=== PATIENT | female | born 1975 | race Caucasian/White ===

== ENCOUNTER 2016-12-22 01:00 | Emergency (ER) | payer SELFPAY ==
[2016-12-22 01:13] VITALS: BP 157/92; BMI 22.3
--- NOTE | 2016-12-22 01:57 | DR.GENAD ---
HPI - Complaint/Symptoms Chief Complaint Doctors Comments: out of BP meds, seizure meds x 4 days. Has had 2 seizures this week. Not seeing PCP in [place] Chief Complaint:: OUT OF BP MEDCINE, DIZZINESS, FALLING OUT Self Treatment fo Chief Complaint: NO - Nurses notes reviewed Nurses Notes Review: Yes - Source History Provided: Patient - Mode of Arrival Mode of Arrival: Ambulatory - Timing Onset of Chief Complaint: 12/20/16 Came on: Gradually - Duration Duration: Intermittent How lon Duration: Days - Location Location: generalized - Severity Severity: Mild - Modifying Factors Worsens:: out of meds - Associated Signs and Symptoms Associated Signs and Symptoms: contusions from falls PMH - PMH Past Medical History: Yes Past Medical History: Asthma, COPD, CVA, Diabetes, CT Past Surgical History: Yes Surgical History: Appendectomy, Hysterectomy Past Surgical History Comment: SCREWS IN NECK - Family History History of Family Medical Conditions: Yes Family Medical History: Diabetes Mellitus, Cancer, Hypertension - Social History Does patient currently use any type of tobacco product: Yes Type of Tobacco Use: Cigarettes - infectious screening Have you traveled outside the country in the last 6 months?: No Isolation: Standard ROS - Review of Systems Constitutional: No Symptoms Reported Eyes: Eye Pain (periorbital contusion from fall) ENTM: No Symptoms Reported Respiratoy: No Symptoms Reported Cardiovascular: No Symptoms Reported Gastrointestinal/Abdominal: No Symptoms Reported Genitourinary: No Symptoms Reported Neurological: Seizure Musculoskeletal: No Symptoms Reported Integumentary: No Symptoms Reported Hematologic/Lymphatic: No Symptoms Reported Endocrine: No Symptoms Reported Psychiatric: Depression PE - Vital Signs Vitals: Temperature 98.4 F Pulse Rate 112 Respiratory Rate 22 Blood Pressure 157/92 O2 Sat by Pulse Oximetry 100 - General Limitations: No Limitations General Appearance: Alert, In No Apparent Distress - Head Head Exam: negative: Normal Inspection, Atraumatic (periorbital right eye contusion) - Eyes Eye exam: Normal Appearance, EOMI. negative: Scleral Icterus, Conjunctival Injection - ENT ENT Exam: Normal Exam External Ear Exam: Normal External Inspection Nose Exam: Normal Nose Exam - Neck Neck Exam: Normal Inspection, Full ROM, Trachea Midline - Chest Chest Inspection: Normal Inspection - Respiratory Respiratory Exam: Normal Lung Sounds Bilat. negative: Accessory Muscle Use, Respiratory Distress Respiratory Exam: Bilateral Clear to Auscultation - Cardiovascular Cardiovascular Exam: Tachycardia - Abdominal Exam Abdominal Exam: Normal Inspection, Normal Bowel Sounds, Soft. negative: Distention, Tenderness, Guarding - Extremities Extremities Exam: Full ROM, Tenderness (right leg contusion and abrasion). negative: Normal Inspection - Neurologic Neurological Exam: Alert, Oriented X3, CN II-XII Intact - Psychiatric Psychiatric Exam: Depressed - Skin Skin Exam: Intact, Normal Color ROR - Labs Reviewed Result Diagrams: 12/22/16 02:03 12/22/16 02:03 Laboratory: WBC 10.3 X10^3/uL (3.6-10.0) H 12/22/16 02:03 RBC 4.84 X10^6/uL (3.5-5.4) 12/22/16 02:03 Hgb 13.4 g/dL (12.0-16.0) 12/22/16 02:03 Hct 40.0 % (36.0-47.0) 12/22/16 02:03 MCV 82.8 fL (80.0-100.0) 12/22/16 02:03 MCH 27.8 pg (27.0-34.0) 12/22/16 02:03 MCHC 33.5 g/dL (33.0-35.0) 12/22/16 02:03 RDW 15.4 % (11.6-16.5) 12/22/16 02:03 Plt Count 359 X10^3/uL (150.0-450.0) 12/22/16 02:03 MPV 9.0 fL (7.4-11.0) 12/22/16 02:03 Neut % 64.2 % (42.0-75.0) 12/22/16 02:03 Lymph % 23.7 % (21.0-51.0) 12/22/16 02:03 [place] % 8.2 % (0.0-13.0) 12/22/16 02:03 Eos % 3.3 % (0.9-2.9) H 12/22/16 02:03 Baso % 0.6 % (0.2-1.0) 12/22/16 02:03 Neut # 6.6 x10^3/uL (2.2-4.8) H 12/22/16 02:03 Lymph # 2.4 X10^3/uL (1.3-2.9) 12/22/16 02:03 [place] # 0.8 x10^3/uL (0.3-0.8) 12/22/16 02:03 Eos # 0.3 x10^3/uL (0.0-0.2) H 12/22/16 02:03 Baso # 0.1 X10^3/uL (0.0-0.1) 12/22/16 02:03 Absolute Nucleated RBC 0.0 /100WBC 12/22/16 02:03 Sodium 139 mmol/L (136-145) 12/22/16 02:03 Corrected Sodium TNP 12/22/16 02:03 Potassium 3.3 mmol/L (3.5-5.1) L 12/22/16 02:03 Chloride 100 mmol/L (98-107) 12/22/16 02:03 Carbon Dioxide 28.9 mmol/L (21-32) 12/22/16 02:03 BUN 26 mg/dL (7-18) H 12/22/16 02:03 Creatinine 1.46 mg/dL (0.55-1.02) H 12/22/16 02:03 Est GFR (MDRD) Af Amer 51 (>60) L 12/22/16 02:03 Est GFR (MDRD) Non-Af 42 (>60) L 12/22/16 02:03 Glucose 82 mg/dL (65-99) 12/22/16 02:03 Calcium 9.5 mg/dL (8.5-10.1) 12/22/16 02:03 Corrected Calcium TNP 12/22/16 02:03 Total Bilirubin 0.20 mg/dL (0.2-1.0) 12/22/16 02:03 AST 81 Units/L (15-37) H 12/22/16 02:03 ALT 70 Units/L (12-78) 12/22/16 02:03 Alkaline Phosphatase 137 Units/L (46-116) H 12/22/16 02:03 Creatine Kinase 181 Units/L (26-192) 12/22/16 02:03 CK-MB (CK-2) 17.1 ng/mL (0-4.0) H* 12/22/16 02:03 CK/CKMB % Calc 9.5 % (<4) 12/22/16 02:03 Troponin I 0.17 ng/mL (0-1.5) 12/22/16 02:03 Total Protein 8.9 g/dL (6.4-8.2) H 12/22/16 02:03 Albumin 3.5 g/dL (3.4-5.0) 12/22/16 02:03 Globulin 5.4 g/dL (2.5-4.5) H 12/22/16 02:03 Albumin/Globulin Ratio 0.6 Ratio (1.1-2.1) L 12/22/16 02:03 Specimen Type Clean catch urine 12/22/16 01:49 Urine Color Yellow (YELLOW) 12/22/16 01:49 Urine Appearance Cloudy (CLEAR) 12/22/16 01:49 Urine pH 5.0 (5.0 - 8.0) 12/22/16 01:49 Ur Specific [place] 1.015 (1.000-1.030) 12/22/16 01:49 Urine Protein 3+ (NEGATIVE) 12/22/16 01:49 Urine Glucose (UA) 1+ (NEGATIVE) 12/22/16 01:49 Urine Ketones 1+ (NEGATIVE) 12/22/16 01:49 Urine Occult Blood 2+ (NEGATIVE) 12/22/16 01:49 Urine Nitrite Negative (NEGATIVE) 12/22/16 01:49 Urine Bilirubin Negative (NEGATIVE) 12/22/16 01:49 Urine Urobilinogen Normal (NORMAL) 12/22/16 01:49 Ur Leukocyte Esterase 1+ (NEGATIVE) 12/22/16 01:49 Urine RBC 2-6 /HPF (NEGATIVE) 12/22/16 01:49 Urine WBC 10-15 /HPF (NEGATIVE) 12/22/16 01:49 Ur Squamous Epith Cells Few /HPF (NEGATIVE) 12/22/16 01:49 Urine Bacteria 3+ /HPF (NEGATIVE) 12/22/16 01:49 Ur Culture Indicated? No/not ordered 12/22/16 01:49 Urine Opiates Screen Negative (NEG=<300) 12/22/16 01:49 Urine Methadone Screen Negative (NEG=<300) 12/22/16 01:49 Ur Barbiturates Screen Negative (NEG=<200) 12/22/16 01:49 Phenytoin < 0.5 ug/mL (10-20) L 12/22/16 02:03 Ur Phencyclidine Scrn Negative (NEG=<25) 12/22/16 01:49 Ur Amphetamines Screen Positive (NEG=<1000) A 12/22/16 01:49 U Benzodiazepines Scrn Positive (NEG=<200) A 12/22/16 01:49 Urine Cocaine Screen Negative (NEG=<300) 12/22/16 01:49 U Marijuana (THC) Screen Negative (NEG=<50) 12/22/16 01:49 - XRAY XRAY Interpreted by: Self XRAY Findings: chest : normal cspine:no fx - EKG Rate: 85 [place]: Normal Rhythm: NSR Block: None Hypertrophy: LAE, LVH ST: Nonsp - Diagnosis Discharge Problem: Seizure - Discharge Plan Condition: Stable Prescriptions: Clonidine HCl [CATAPRES 0.1 MG TAB *] 0.1 mg PO BID #30 tab Nitrofurantoin Monohyd Macro [Macrobid] 100 mg PO BID #14 cap Phenytoin Sodium Ext Rel [Dilantin Cap 100 mg Ext Rel] 100 mg PO Q8H PRN #90 cap PRN Reason: - Follow ups/Referrals Follow ups/Referrals: NFD,None [Primary Care Provider] - 3 days - Instructions Instructions: Urinary Tract Infection, [id number], Seizure, Adult, Easy-to- Read
[2016-12-22 02:36] LABS: BILIRUBIN,URINE NEGATIVE (NEGATIVE); BLOOD/HEMOGLOBIN,URINE 2+ (NEGATIVE); GLUCOSE, URINE 1+ (NEGATIVE); KETONES,URINE 1+ (NEGATIVE); LEUKOCYTE ESTERASE ,URINE 1+ (NEGATIVE); NITRITES,URINE NEGATIVE (NEGATIVE); PROTEIN,URINE 3+ (NEGATIVE); UROBILINOGEN,URINE NORMAL (NORMAL)
[2016-12-22 02:43] LABS: BASOPHILS # (AUTO) 0.1 X10^3/uL (0.0-0.1); BASOPHILS % (AUTO) 0.6 % (0.2-1.0); EOSINOPHILS # (AUTO) 0.3 x10^3/uL (0.0-0.2); EOSINOPHILS % (AUTO) 3.3 % (0.9-2.9); HEMOGLOBIN 13.4 g/dL (12.0-16.0); LYMPHOCYTES # (AUTO) 2.4 X10^3/uL (1.3-2.9); LYMPHOCYTES % (AUTO) 23.7 % (21.0-51.0); MEAN CORPUSCULAR HEMOGLOBIN 27.8 pg (27.0-34.0); MEAN CORPUSCULAR HGB CONC 33.5 g/dL (33.0-35.0); MEAN CORPUSCULAR VOLUME 82.8 fL (80.0-100.0); MONOCYTES # (AUTO) 0.8 x10^3/uL (0.3-0.8); MONOCYTES % (AUTO) 8.2 % (0.0-13.0); NEUTROPHILS # (AUTO) 6.6 x10^3/uL (2.2-4.8); NEUTROPHILS % (AUTO) 64.2 % (42.0-75.0); PLATELET COUNT 359 X10^3/uL (150.0-450.0); RED BLOOD COUNT 4.84 X10^6/uL (3.5-5.4); RED CELL DISTRIBUTION WIDTH 15.4 % (11.6-16.5); WHITE BLOOD COUNT 10.3 X10^3/uL (3.6-10.0)
[2016-12-22 02:45] LABS: BLOOD UREA NITROGEN 26 mg/dL (7-18); CALCIUM 9.5 mg/dL (8.5-10.1); CARBON DIOXIDE 28.9 mmol/L (21-32); CHLORIDE 100 mmol/L (98-107); CREATININE 1.46 mg/dL (0.55-1.02); GLUCOSE 82 mg/dL (65-99); SODIUM 139 mmol/L (136-145); TROPONIN I 0.17 ng/mL (0-1.5); eGFR BLACK RACES 51 (>60); eGFR NON BLACK RACES 42 (>60)
[2016-12-22 02:55] LABS: APPEARANCE,URINE CLOUDY (CLEAR); BACTERIA,URINE 3+ /HPF (NEGATIVE); COLOR,URINE YELLOW (YELLOW); SQUAMOUS EPITHELIAL CELL,UR FEW /HPF (NEGATIVE)
[2016-12-22 03:09] LABS: ALANINE AMINOTRANSFERASE 70 Units/L (12-78); ALBUMIN 3.5 g/dL (3.4-5.0); ALKALINE PHOSPHATASE 137 Units/L (46-116); ASPARTATE AMINO TRANSFERASE 81 Units/L (15-37); CKMB % 9.5 % (<4); CREATINE KINASE 181 Units/L (26-192); TOTAL PROTEIN 8.9 g/dL (6.4-8.2)
[2016-12-22 03:14] LABS: CREATINE KINASE MB 17.1 ng/mL (0-4.0)
[2016-12-22] MEDS ORDERED: DILANTIN INJ 100 MG VIAL IVP ONE (03:18)
[2016-12-22] MEDS ORDERED: MACROBID CAP 100 MG EXT REL PO ONE ×2 (03:19→03:34)
[2016-12-22] MEDS ORDERED: DILANTIN CAP 100 MG EXT REL PO ONE ×5 (03:25→03:48)
--- NOTE | 2016-12-22 04:16 | RAD ---
Chest AP portable Indication: Chest pain. Findings: There is no pneumothorax or effusion. There is no consolidation. Heart size is normal. Impression: No acute chest process. Reported By:
--- NOTE | 2016-12-22 04:17 | RAD ---
Cervical spine five views Indication: Neck pain. Fall. Seizures. Findings: Prevertebral soft tissues are normal. There is no cortical lucency or malalignment. Cervic al spine hardware at C3-C4 noted. Cervicothoracic and craniocervical junction are intact. Oblique view shows no bony neural foramen na rrowing. Impression: No acute cervical spine fracture. Reported By:
== END 2016-12-22 03:51 | disposition home or self-care (01) ==
LOC: ER 01:00
DX: R56.9 Unspecified convulsions (principal)
CPT/HCPCS: 36415; 71010; 72050; 80053; 80185; 80307; 81001; 82550; 82553; 84484; 85025; 93005; 93010; 99283; G0434